=== PATIENT | female | born 1965 | race Caucasian/White ===

== ENCOUNTER 2021-05-08 20:14 | Emergency (ER) | payer MEDICAID ==
[~2021-05-08] VITALS: Ht 167.6 cm; Wt 74.8 kg
--- NOTE | 2021-05-08 20:21 | NUR ---
BIBRA 878 C/O FEELING SI WITH PLAN TO JUMP IN FRONT OF CAR, VOL PSYCH ADM . PT AMBULATORY WITH STEADY GAIT. A/OX3. TOLERATING R/A WELL WITH NO SOB. SAFETY 1:[address]
--- NOTE | 2021-05-08 20:38 | NUR ---
PROCESS TANK TENDER AT PT'S BEDSIDE
--- NOTE | 2021-05-08 20:44 | NUR ---
URINE AND COVID ANTIGEN SWAB COLLECTED, SENT TO LAB
[2021-05-08 20:52] LABS: BASOPHILS # (AUTO) 0.1 K/uL (0.0-0.2); BASOPHILS % (AUTO) 0.5 % (0.0-2.0); EOSINOPHILS % (AUTO) 1.2 % (0.0-6.0); HEMATOCRIT 35 % (33-45); HEMOGLOBIN 11.2 g/dL (11.5-14.8); LYMPHOCYTES # (AUTO) 3.4 K/uL (0.8-4.8); LYMPHOCYTES % (AUTO) 31.1 % (20.0-44.0); MEAN CORPUSCULAR HGB CONC 33 g/dl (31.0-36.0); MEAN CORPUSCULAR VOLUME 80 fL (82-100); MONOCYTES # (AUTO) 0.5 K/uL (0.1-1.30); MONOCYTES % (AUTO) 4.4 % (2.0-12.0); NEUTROPHILS # (AUTO) 6.8 K/uL (1.8-8.9); NEUTROPHILS % (AUTO) 62.8 % (43.0-81.0); PLATELET COUNT (AUTO) 345 K/uL (150-450); RED BLOOD CELL COUNT(AUTO) 4.31 MIL/uL (4.0-5.2); WHITE BLOOD COUNT (AUTO) 10.8 K/uL (4.3-11.0)
[2021-05-08 21:01] LABS: CALCIUM, SERUM 9.1 mg/dL (8.5-10.1); CARBON DIOXIDE 25 mmol/L (21-32); CHLORIDE 103 mmol/L (98-107); CREATININE 0.7 mg/dL (0.6-1.3); GLUCOSE 164 mg/dL (74-106); POTASSIUM 3.4 mmol/L (3.5-5.1); SODIUM SERUM 136 mmol/L (136-145); UREA NITROGEN, BLOOD 17 mg/dL (7-18)
[2021-05-08 21:09] LABS: BILIRUBIN,URINE NEGATIVE (NEGATIVE); COLOR,URINE YELLOW (YELLOW); LEUKOCYTE ESTERASE ,URINE NEGATIVE (NEGATIVE); NITRITE, URINE NEGATIVE (NEGATIVE); PH,URINE 5.5 (5.0-8.0); PROTEIN,URINE 30 mg/dl (NEGATIVE); UGLUCOSE NEGATIVE (NEGATIVE); UROBILINOGEN,URINE 0.2 EU/dL (0.2)
[2021-05-08 21:14] LABS: ALANINE AMINOTRANSFERASE 21 U/L (12-78); ALBUMIN 3.5 g/dL (3.4-5.0); ALCOHOL, BLOOD < 3 mg/dL (0-0); ALKALINE PHOSPHATASE 188 U/L (46-116); ASPARTATE AMINOTRANSFERASE 14 U/L (15-37); BILIRUBIN,TOTAL 0.1 mg/dL (0.2-1.0)
[2021-05-08 21:17] LABS: ACETAMINOPHEN < 2 ug/ml (10-30)
[2021-05-08 21:22] LABS: BACTERIA,URINE 1+ /HPF (None Seen); WBC,URINE 0-2 /HPF (0-3)
--- NOTE | 2021-05-09 01:30 | NUR ---
FAXED FACE SHEET AND CLININCALS TO [facility]
[2021-05-09] MEDS ORDERED: MAGNESIUM HYDROXIDE 30 ML UDC ONE (04:40)
--- NOTE | 2021-05-09 08:05 | NUR ---
Breakfast Served - Ate % 100. Updated with plan of care. Await response from Psych Facility. NA cooperative/Compliant
--- NOTE | 2021-05-09 09:28 | NUR ---
CALLED [facility] INTAKE STILL AWAITING FEEDBACK PER
--- NOTE | 2021-05-09 14:00 | NUR ---
Pt adamantly states "I am NOT suicidal I just wanted to go to [facility]" - Cleared by Dr Bloom for discharge. Refused to sign ACI
[2021-05-09 14:59] VITALS: BP 145/90
== END 2021-05-09 15:00 | disposition home or self-care (01) ==
LOC: EDSEX 20:14 → ER 20:36
DX: R45.851 Suicidal ideations (principal); Z59.00 Homelessness unspecified; Z20.822 Contact with and (suspected) exposure to COVID-19; F20.9 Schizophrenia, unspecified; I10 Essential (primary) hypertension; Z53.29 Procedure and treatment not carried out because of patient's decision for other reasons
CPT/HCPCS: 36415; 80048; 80076; 80143; 80307; 80320; 81001; 85025; 87426; 99285; C9803; G0480